=== PATIENT | male | born 1960 | race Caucasian/White ===

== ENCOUNTER 2017-01-28 10:09 | Outpatient (CLI) | payer OTHER ==
[2017-01-28 11:29] LABS: Hemoglobin A1c 6.9 % (4.0-6.0)
== END 2017-01-28 10:10 | disposition home or self-care (01) ==
LOC: HPCALD 10:09
PROVIDERS: ATTEND Physician Assistant
DX: E11.9 Type 2 diabetes mellitus without complications (principal); M10.9 Gout, unspecified
CPT/HCPCS: 36415; 83036; 84550

== ENCOUNTER 2018-04-29 09:06 | Outpatient (CLI) | payer OTHER ==
--- NOTE | 2018-04-29 16:52 | RAD ---
LEFT SHOULDER THREE VIEWS: 04/29/18 No fracture, dislocation, or AC joint widening was seen. the visible adjacent ribs appear normal. The re was no substantial arthritic change. IMPRESSION: No acute findings. POS: HOME
--- NOTE | 2018-04-29 16:53 | RAD ---
RIGHT SHOULDER THREE VIEWS: 04/29/18 There has been a prior operative procedure with screws left in the greater tubercle, probably prior r otator cuff surgery. Calcifications are seen superior to the humeral head suggesting there may be kajal cific tendinitis present. No fracture or dislocation was seen. There is some cystic changes in the no narticular portion of the humeral head. The AC joint is a bit wider than the left. There may have bee n old trauma here. IMPRESSION: 1. Postop changes. 2. Possible calcific tendonitis. POS: HOME
== END 2018-04-29 09:07 | disposition home or self-care (01) ==
LOC: BURRAD 09:06
PROVIDERS: ATTEND Physician Assistant
DX: M19.011 Primary osteoarthritis, right shoulder (principal); M25.512 Pain in left shoulder; Z98.890 Other specified postprocedural states